=== PATIENT | female | born 1980 | race Caucasian/White ===

== ENCOUNTER 2016-12-12 19:56 | Emergency (ER) | payer BC ==
[2016-12-12] MEDS ORDERED: Azithromycin 250 MG Tab PO STA (21:19)
--- NOTE | 2016-12-12 21:24 | EDM.PDOC ---
ED HPI GENERAL MEDICAL PROBLEM - General Chief Complaint: ENT Problem Stated Complaint: SINUS/RUNNY NOSE/COUGH/SORE THROAT Time Seen by Provider: 12/12/16 21:15 Source of Information: Reports: Patient, RN - History of Present Illness INITIAL COMMENTS - FREE TEXT/NARRATIVE: recent sinus pressure and sore throat. was recently prescribed antibiotics for "strep throat". Face Pain Score (Numeric/FACES): 3 - Related Data Allergies Allergy/AdvReac Type Severity Reaction Status Date / Time Penicillins AdvReac Hives Verified 12/12/16 21:04 Home Meds: Home Meds [id number]/Ferrous Fumarate/FA [ Tablet] 1 tab PO DAILY 12/12/16 [History] ED ROS ENT - Review of Systems Review Of Systems: See Below Respiratory: Denies: Shortness of Breath Cardiovascular: Denies: Chest Pain GI/Abdominal: Denies: Abdominal Pain, Vomiting ED EXAM, ENT - Physical Exam Exam: See Below General Appearance: Alert, No Apparent Distress Mouth/Throat: Normal Inspection, Normal Oropharynx Head: Sinus Tenderness (maxillary sinus tenderness) Neck: Supple Respiratory/Chest: No Respiratory Distress, Lungs Clear, Normal Breath Sounds, No Accessory Muscle Use Cardiovascular: Regular Rate, Rhythm Course - Vital Signs Last Recorded V/S: Last Vital Signs Temp 99.1 F 12/12/16 21:01 Pulse 122 H 12/12/16 21:01 Resp 18 12/12/16 21:01 BP 128/79 12/12/16 21:01 Pulse Ox 97 12/12/16 21:01 - Orders/Labs/Meds Meds: Medications Discontinued Medications Generic Name Dose Route Start Last Admin Trade Name Dana PRN Reason Stop Dose Admin Azithromycin 500 mg 12/12/16 21:19 Zithromax PO 12/12/16 21:20 NOW STA - Re-Assessments/Exams Free Text/Narrative Re-Assessment/Exam: 12/12/16 21:31 repeat heart rate 116 / minute; alert non toxic appearance; no dyspnea or light headedness; ambulatory Departure - Departure Time of Disposition: 21:22 Disposition: Home, Self-Care 01 Condition: good Clinical Impression: Maxillary sinusitis, acute - Discharge Information Referrals: PCP,None [Primary Care Provider] - Forms: ED Department Discharge Additional Instructions: azithromycin 500 mg po now azithromycin 250 mg daily x four days recheck as needed
[2016-12-13 04:57] VITALS: BP 121/74
== END 2016-12-12 21:50 | disposition home or self-care (01) ==
LOC: MW.ED 19:56
DX: J01.00 Acute maxillary sinusitis, unspecified (principal); Z88.0 Allergy status to penicillin
CPT/HCPCS: 99283; A9270